=== PATIENT | female | born 1995 | race Hispanic/Latino ===

== ENCOUNTER → 2020-11-29 09:48 | Outpatient (CLI) | payer OTHER, SELFPAY ==
--- NOTE | 2020-11-29 | DI.MRI.S_ITS ---
PROCEDURE: MR KNEE LT WO CON INDICATIONS: Pain in left knee TECHNIQUE: Noncontrast sagittal PD fast spin echo and T2 fast spin echo with fat saturation, sagittal 3-D FLASH with fat saturation; coronal T1 spin echo and PD fast spin echo with fat saturation, and axial PD fast spin echo with fat saturation through the knee. COMPARISON: None. FINDINGS: Image quality: Excellent. Menisci: The medial and lateral menisci demonstrate normal morphology and internal signal. The meniscal root ligaments appear intact. Cruciate ligaments: The anterior and posterior cruciate ligaments appear intact. Medial structures: The medial collateral ligament appears intact. The semimembranosus tendon insertions and meniscocapsular junction appear intact. Visualized portions of the pes anserinus tendons appear normal. No abnormal bursal fluid. Lateral structures: The lateral collateral ligament, long and short heads of the biceps femoris tendon appear intact. The popliteus tendon appears intact. No signs of posterolateral corner injury. Iliotibial band appears normal. Anterior structures: There is mild patella sebas. The patellar tendon and distal quadriceps tendon are intact. No significant trochlear dysplasia is seen. A small amount of edema is seen at the superolateral aspect of Hoffa's fat pad, which can be seen in the setting of lateral femoral condyle-patellar tendon friction syndrome. Bones and cartilage: No bone marrow contusions or fractures. The cartilage of the medial and lateral femorotibial compartments, as well as the patellofemoral compartment, appears normal in thickness. Joint space: There is a physiologic amount of joint fluid. A trace medial popliteal cyst is present. The musculature surrounding the knee is normal in bulk. IMPRESSION: 1. Mild patella sebas. 2. Small amount of edema at the superolateral aspect of Hoffa's fat pad can be seen in the setting of lateral femoral condyle-patellar tendon friction syndrome. 3. Intact cruciate and collateral ligaments. No acute trabecular bone injury. No meniscal tear is seen. Dictated by: Mani Baxter M.D. on 11/29/2020 at 10:48 Approved by: Mani Baxter M.D. on 11/29/2020 at 10:51
== END ==
PROVIDERS: PCP Student in an Organized Health Care Education/Training Program
DX: M25.562 Pain in left knee (principal); M22.8X2 Other disorders of patella, left knee
CPT/HCPCS: 73721